=== PATIENT | female | born 1995 | race Two or more races ===

== ENCOUNTER 2020-06-18 17:43 | Emergency (ER) | payer OTHER ==
[~2020-06-18] VITALS: Ht 147.3 cm; Wt 51.3 kg
== END 2020-06-18 20:17 | disposition home or self-care (01) ==
LOC: ER 17:43
DX: R50.9 Fever, unspecified (principal); Z03.818 Encounter for observation for suspected exposure to other biological agents ruled out

== ENCOUNTER 2020-08-14 10:05 | Emergency (ER) | payer OTHER ==
[~2020-08-14] VITALS: Ht 147.3 cm; Wt 49.9 kg
== END 2020-08-14 18:06 | disposition home or self-care (01) ==
LOC: ER 10:05
DX: N92.5 Other specified irregular menstruation (principal); K62.5 Hemorrhage of anus and rectum

== ENCOUNTER 2020-10-24 11:30 | Emergency (ER) | payer OTHER ==
[~2020-10-24] VITALS: Ht 147.3 cm; Wt 49.9 kg
[2020-10-24] MEDS ORDERED: REMICADE IV (12:17)
[2020-10-24] MEDS ORDERED: PREDNISONE10 MG PO (20:42)
== END 2020-10-24 20:47 | disposition home or self-care (01) ==
LOC: ER 11:30
DX: R10.84 Generalized abdominal pain (principal); K50.90 Crohn's disease, unspecified, without complications; Z11.52 Encounter for screening for COVID-19

== ENCOUNTER → 2021-01-02 | Emergency (ER) | payer OTHER ==
[~2021-01-02] VITALS: Ht 147.3 cm; Wt 50.3 kg
[~2021-01-02] MED LIST: ANTICONCEPTIVO; DUI500 PO; PREDNISONE10 MG PO; REMICADE IV; STELARA45 MG/0.1
== END | disposition home or self-care (01) ==
LOC: ER 18:26
DX: J03.90 Acute tonsillitis, unspecified (principal); R51.9 Headache, unspecified; R53.81 Other malaise; Z03.818 Encounter for observation for suspected exposure to other biological agents ruled out

== ENCOUNTER 2021-03-26 08:25 | Emergency (ER) | payer OTHER ==
[~2021-03-26] VITALS: Ht 147.3 cm; Wt 53.5 kg
[2021-03-26] MEDS ORDERED: LOESTRIN FE 1-1 EACH PO (08:37)
== END 2021-03-26 17:22 | disposition home or self-care (01) ==
LOC: ER 08:25
DX: K29.00 Acute gastritis without bleeding (principal)

== ENCOUNTER 2021-04-14 01:34 | Emergency (ER) | payer OTHER ==
[~2021-04-14] VITALS: Ht 147.3 cm; Wt 52.6 kg
[~2021-04-14 01:34] MED LIST changes: +LOESTRIN FE 1-1 EACH PO
[2021-04-14] MEDS ORDERED: DICY20TA PO (06:52)
[2021-04-14] MEDS ORDERED: CIPRO500 MG PO (06:52)
[2021-04-14] MEDS ORDERED: PEPCID AC20 MG PO (06:52)
[2021-04-14] MEDS ORDERED: METRONIDAZOLE500 MG PO (06:52)
== END 2021-04-14 06:58 | disposition home or self-care (01) ==
LOC: ER 01:34
DX: K50.10 Crohn's disease of large intestine without complications (principal)

== ENCOUNTER 2021-04-20 22:22 | Emergency (ER) | payer OTHER ==
[~2021-04-20] VITALS: Ht 147.3 cm; Wt 52.6 kg
[~2021-04-20 22:22] MED LIST changes: +CIPRO500 MG PO; +DICY20TA PO; +METRONIDAZOLE500 MG PO; +PEPCID AC20 MG PO
[2021-04-21] MEDS ORDERED: ULTRAM50 MG PO (03:39)
== END 2021-04-21 04:39 | disposition home or self-care (01) ==
LOC: ER 22:22
DX: K50.90 Crohn's disease, unspecified, without complications (principal); R10.9 Unspecified abdominal pain

== ENCOUNTER 2021-04-22 18:20 | Inpatient (IN) | payer OTHER ==
[~2021-04-22] VITALS: Ht 177.8 cm
[~2021-04-22 18:20] MED LIST changes: +ULTRAM50 MG PO
--- NOTE | 2021-04-22 18:51 | NUR ---
PTE ALERTA,ESTABLE Y ORIENTADA.ESTA REFIERE QUE LLEVA VARIOS PARKS CON DOLOR DE ABDOMEN Y SANGRADO RECTAL.
--- NOTE | 2021-04-22 19:35 | NUR ---
MR. BROWN EDUCA A PTE SOBRE [place] MEDICO ESTA REFIERE ENTENDER SE JAMES MUESTRAS DE LABORATORIO UTILIZANDO MEDIDAS ASEPTICAS. SE COLOCA H/L EL CUAL SE ENCUENTRA PATENTE. SE COLOCAN MEDICAMENTO LOS CUALES TOLERA.
--- NOTE | 2021-04-22 23:48 | NUR ---
PACIENTE ALERTA Y ORIENTADA X3. RECIBIENDO 0.9% NSS DE 1,000ML BAJANDO A 125ML/HR. PENDIENTE CT ABDOMEN Y PELVICO CON CONTRASTE PO. PACIENTE CONSULTADA CON DR. WYATT GALICIA. PENDIENTE ENTREGA DE MUESTRA DE MONIE OCULTA. SE MANTIENE BAJO OBSERVACION POR CAMBIOS SIGNIFICATIVOS.
--- NOTE | 2021-04-23 07:19 | NUR ---
PACIENTE FEMENINA, ALERTA Y ORIENTADA. ACOSTADA EN NÉSTOR BARANDAS ELEVADAS POR SEGURIDAD. CANALIZADA EN BRAZO SUMIT, EL MISMO PATENTE AL MOMENTO. SE LE ORIENTA SOBRE CONTINUIDAD DE TRATAMIENTO, REFIERE ENTENDER. REFIERE TENER LEVE DOLOR ABDOMINAL, SHERRI LANGFORD MCKENZIE. SE MANTIENE BAJO OBSERVACION POR CAMBIOS. PENDIENTE CONSULTA CON DR. WYATT GALICIA.
--- NOTE | 2021-04-23 16:42 | NUR ---
SE ORIENTA A PACIENTE SOBRE PROCEDIMIENTO DE PICC LINE Y CONSENTIMIENTO. PACIENTE REFIERE TENER MIEDO A PROCEDIMIENTO. SE LE ORIENTA A PACIENTE QUE SE VA A MANTENER CONSENTIMIENTO SIN FIRMAR EN MARSHALL PAPELES DE RECORD EN HIRA DE QUE CAMBIE DE OPINION
--- NOTE | 2021-04-23 16:45 | NUR ---
SE ORIENTA A PACIENTE SOBRE CONSENTIMIENTO Y PROCEDIMIENTO DE PICC LINE LA CUAL INDICA TENER MIEDO Y REHUSAR. SE ORIENTA N[place]VAMENTE A PACIENTE Y SE LE NOTIFICA QUE DOCUMENTO DE CONSENTIMIENTO SIN FIRMAR SE MANTENDRA EN RECORD EN HIRA DE QUE CAMBIE DE OPINION
[2021-04-25] MEDS ORDERED: FAMOTIDINE20 MG (15:00)
[2021-04-25] MEDS ORDERED: LO LOESTRIN FE1 EACH (15:00)
[2021-04-25] MEDS ORDERED: PANTOPRAZOLE SO40 MG (15:01)
[2021-04-25] MEDS ORDERED: LORATADINE10 MG (15:01)
== END 2021-04-27 19:00 | disposition home or self-care (01) | DRG 386 ==
LOC: ER 18:20 → MEDJ 04-23 17:36
PROVIDERS: ADMIT Internal Medicine; ATTEND Internal Medicine
PROC: BW2110Z Computerized Tomography (CT Scan) of Abdomen and Pelvis using Low Osmolar Contrast, Unenhanced and Enhanced (ICD-10-PCS; principal; 2021-04-23)
PROC: BT4JZZZ Ultrasonography of Kidneys and Bladder (ICD-10-PCS; 2021-04-27)
DX: K50.00 Crohn's disease of small intestine without complications (principal); N17.8 Other acute kidney failure; K29.60 Other gastritis without bleeding; Z20.822 Contact with and (suspected) exposure to COVID-19

== ENCOUNTER 2022-02-11 13:44 | Emergency (ER) | payer OTHER ==
[~2022-02-11] VITALS: Ht 147.3 cm; Wt 49.4 kg
[~2022-02-11 13:44] MED LIST changes: +FAMOTIDINE20 MG; +LO LOESTRIN FE1 EACH; +LORATADINE10 MG; +PANTOPRAZOLE SO40 MG
== END 2022-02-11 20:08 | disposition home or self-care (01) ==
LOC: ER 13:44
DX: K52.9 Noninfective gastroenteritis and colitis, unspecified (principal); Z91.041 Radiographic dye allergy status

== ENCOUNTER 2022-05-16 16:10 | Emergency (ER) | payer OTHER ==
[~2022-05-16] VITALS: Ht 149.9 cm; Wt 52.2 kg
[2022-05-16] MEDS ORDERED: KETO10TA2 PO (21:12)
== END 2022-05-16 21:28 | disposition home or self-care (01) ==
LOC: ER 16:10
DX: N20.0 Calculus of kidney (principal); Z88.8 Allergy status to other drugs, medicaments and biological substances; Z20.822 Contact with and (suspected) exposure to COVID-19

== ENCOUNTER → 2023-01-04 | Emergency (ER) | payer OTHER ==
[~2023-01-04] VITALS: Ht 149.9 cm; Wt 51.7 kg
[~2023-01-04] MED LIST changes: +KETO10TA2 PO
== END | disposition left against medical advice (07) ==
LOC: ER 12:43
DX: Z53.21 Procedure and treatment not carried out due to patient leaving prior to being seen by health care provider (principal)

== ENCOUNTER 2023-01-07 11:09 | Emergency (ER) | payer OTHER ==
[~2023-01-07] VITALS: Ht 149.9 cm; Wt 51.7 kg
[2023-01-07] MEDS ORDERED: AMBIEN5 MG PO (11:18)
[2023-01-07] MEDS ORDERED: PROAIR RESPICL90 MCG IH (12:45)
[2023-01-07] MEDS ORDERED: TUSNEL LIQUID178 ML PO (12:45)
[2023-01-07] MEDS ORDERED: PAXLOVID 300-11 EACH PO (12:45)
== END 2023-01-07 13:04 | disposition home or self-care (01) ==
LOC: ER 11:09
DX: U07.1 COVID-19 (principal); R50.9 Fever, unspecified; Z91.041 Radiographic dye allergy status

== ENCOUNTER → 2023-04-22 | Emergency (ER) | payer OTHER ==
[~2023-04-22] VITALS: Ht 149.9 cm; Wt 50.3 kg
[~2023-04-22] MED LIST changes: +AMBIEN5 MG PO; +PAXLOVID 300-11 EACH PO; +PROAIR RESPICL90 MCG IH; +REMERON15 M1 PO; +TUSNEL LIQUID178 ML PO; +[UNRECOGNIZED DRUG - OTHER]
== END | disposition left against medical advice (07) ==
LOC: ER 21:40
DX: Z53.21 Procedure and treatment not carried out due to patient leaving prior to being seen by health care provider (principal)

== ENCOUNTER 2023-07-21 12:05 | Emergency (ER) | payer OTHER ==
[~2023-07-21] VITALS: Ht 147.3 cm; Wt 54.4 kg
[2023-07-21] MEDS ORDERED: 0.9 % SODIUM CHLORIDE 1,000 ML IV STA (13:09)
[2023-07-21] MEDS ORDERED: MEPERIDINE HCL/PF 25 MG/ML VIAL IM STA (13:10)
[2023-07-21] MEDS ORDERED: HYOSCYAMINE SULFATE 0.125 MG TAB.SUBL SL ONE (13:15)
[2023-07-21 13:35] LABS: HEMATOCRIT 34.4 % (36.0-45.00); HEMOGLOBIN 11.4 g/dL (12.0-15.00); MEAN CELL VOLUME 77.3 fL (80.00-100.00); MEAN CORPUSCULAR HEMOGLOBIN 25.6 pg (27.00-32.0); MEAN CORPUSCULAR HGB CONC 33.1 g/dl (32.0-36.0); PLATELET COUNT 393 K/uL (150-450); RED BLOOD COUNT 4.45 M/uL (4.00-6.00); RED CELL DISTRIBUTION WIDTH 15.7 % (11.5-14.5)
[2023-07-21 14:10] LABS: ALBUMIN 3.7 gm/dL (3.4-5.0); BILIRUBIN TOTAL 0.64 mg/dL (0.3-1.2); BILIRUBIN,CONJUGATED 0.15 mg/dL (0.0-0.2); BILIRUBIN,UNCONJUGATED 0.49 mg/dL (0.0-0.6); CALCIUM 9.3 mg/dL (8.5-10.1); CREATININE SERUM 0.73 mg/dL (0.55-1.02); GFR 95.63; POTASSIUM 4.64 mEq/L (3.5-5.1); TOTAL PROTEIN 8.1 gm/dL (6.4-8.2)
[2023-07-21 14:45] LABS: PH,URINE 6.5 (5.0-8.0); URINE APPEARANCE Clear; URINE BILIRRUBIN Negative (NEGATIVE); URINE BLOOD Negative; URINE COLOR Yellow; URINE GLUCOSE Negative (NEGATIVE); URINE LEUKOCYTE Small; URINE NITRATE Negative; URINE PROTEIN Negative (NEGATIVE); URINE UROBILINOGEN 0.2 E.U./dl
[2023-07-21 14:49] LABS: URINE BACTERIA 740.8 uL (0.0-1933); URINE EPITHELIAL CELLS 22.4 uL (0.0-38.8); URINE RBC 3.8 uL (0.0-20.8); URINE WBC 20.7 uL (0.0-23.2)
== END 2023-07-21 17:31 | disposition home or self-care (01) ==
LOC: ER 12:05
PROVIDERS: General Practice
DX: K50.90 Crohn's disease, unspecified, without complications (principal); Z91.041 Radiographic dye allergy status

== ENCOUNTER → 2023-07-31 | Emergency (ER) | payer OTHER ==
[~2023-07-31] VITALS: Ht 147.3 cm; Wt 53.5 kg
[~2023-07-31] MED LIST changes: +FLAGYL375 MG
== END | disposition left against medical advice (07) ==
LOC: ER 21:03
DX: Z53.21 Procedure and treatment not carried out due to patient leaving prior to being seen by health care provider (principal)

== ENCOUNTER 2023-08-01 02:26 | Emergency (ER) | payer OTHER ==
[~2023-08-01] VITALS: Ht 147.3 cm; Wt 54.0 kg
[2023-08-01] MEDS ORDERED: METOCLOPRAMIDE HCL 5 MG/ML VIAL IM STA (04:58)
[2023-08-01] MEDS ORDERED: ONDANSETRON HCL 2 MG/ML VIAL IV STA (04:59)
[2023-08-01] MEDS ORDERED: RINGERS SOLUTION,LACTATED 1,000 ML IV STA (04:59)
[2023-08-01] MEDS ORDERED: BISMUTH SUBSALICYLATE 524 MG/30 ML BLIST.PACK PO STA (05:00)
[2023-08-01] MEDS ORDERED: FAMOtidine 10 MG/ML (4ML VIAL) IV PUSH STA (05:00)
[2023-08-01] MEDS ORDERED: HYOSCYAMINE SULFATE 0.125 MG TAB.SUBL SL STA (05:00)
[2023-08-01] MEDS ORDERED: LOPERAMIDE HCL 2 MG CAPSULE PO STA (05:01)
[2023-08-01 05:22] LABS: HEMATOCRIT 37.9 % (36.0-45.00); HEMOGLOBIN 12.6 g/dL (12.0-15.00); MEAN CELL VOLUME 78.6 fL (80.00-100.00); MEAN CORPUSCULAR HEMOGLOBIN 26.2 pg (27.00-32.0); MEAN CORPUSCULAR HGB CONC 33.3 g/dl (32.0-36.0); PLATELET COUNT 420 K/uL (150-450); RED BLOOD COUNT 4.82 M/uL (4.00-6.00); RED CELL DISTRIBUTION WIDTH 15.9 % (11.5-14.5)
[2023-08-01 05:51] LABS: BILIRUBIN TOTAL 0.37 mg/dL (0.3-1.2); CALCIUM 9.7 mg/dL (8.5-10.1); CREATININE SERUM 0.78 mg/dL (0.55-1.02); GFR 88.59; GLOBULINA 4.7 G/DL (2.4-3.5); POTASSIUM 3.93 mEq/L (3.5-5.1); TOTAL PROTEIN 8.7 gm/dL (6.4-8.2)
== END 2023-08-01 07:28 | disposition home or self-care (01) ==
LOC: ER 02:26
DX: K52.89 Other specified noninfective gastroenteritis and colitis (principal); Z91.040 Latex allergy status; Z20.822 Contact with and (suspected) exposure to COVID-19

== ENCOUNTER 2023-08-03 14:40 | Outpatient (CLI) | payer OTHER | END 2023-08-03 14:45 | disposition home or self-care (01) | LOC: MRI 14:40 | PROVIDERS: ATTEND Internal Medicine Gastroenterology | DX: K58.0 Irritable bowel syndrome with diarrhea (principal); F41.1 Generalized anxiety disorder | CPT/HCPCS: 72195 ==

== ENCOUNTER 2024-05-15 13:20 | Emergency (ER) | payer OTHER ==
[~2024-05-15] VITALS: Ht 147.3 cm; Wt 59.4 kg
[2024-05-15 16:12] LABS: HEMATOCRIT 36.9 % (36.0-45.00); HEMOGLOBIN 12.4 g/dL (12.0-15.00); MEAN CELL VOLUME 88.5 fL (80.00-100.00); MEAN CORPUSCULAR HEMOGLOBIN 29.6 pg (27.00-32.0); MEAN CORPUSCULAR HGB CONC 33.4 g/dl (32.0-36.0); PLATELET COUNT 383 K/uL (150-450); RED BLOOD COUNT 4.17 M/uL (4.00-6.00); RED CELL DISTRIBUTION WIDTH 14.2 % (11.5-14.5)
[2024-05-15 16:42] LABS: ALBUMIN 4.5 gm/dL (3.4-5.0); ALKALINE PHOSPHATASE 52 U/L (50-136); ALT/SGPT 14 U/L (12-78); ANION GAP 10 (10.0-20.0); AST/SGOT 15 U/L (15-37); BILIRUBIN TOTAL 0.72 mg/dL (0.3-1.2); BLOOD UREA NITROGEN 8 mg/dL (7-18); BUN CREA RATIO 10 (7.0-25.0); CALCIUM 9.7 mg/dL (8.5-10.1); CARBON DIOXIDE 28 mEq/L (21-32); CHLORIDE 108 mmol/L (98-107); GFR 85.41; GLOBULINA 3.7 G/DL (2.4-3.5); GLUCOSE FASTING 102 mg/dL (65-100); HCG QUANTITATIVE < 1 mUI/mL (1-3); OSMOLALITY SERUM 282 MOSM/KG (275-295); POTASSIUM 4.14 mEq/L (3.5-5.1); SODIUM 142 mmol/L (136-145); TOTAL PROTEIN 8.2 gm/dL (6.4-8.2)
== END 2024-05-15 18:32 | disposition home or self-care (01) ==
LOC: ER 13:22
PROVIDERS: General Practice
DX: R53.81 Other malaise (principal); R20.0 Anesthesia of skin; Z20.822 Contact with and (suspected) exposure to COVID-19; Z91.041 Radiographic dye allergy status

== ENCOUNTER 2024-06-18 10:17 | Emergency (ER) | payer OTHER ==
[~2024-06-18] VITALS: Ht 147.3 cm; Wt 59.0 kg
[2024-06-18] MEDS ORDERED: RINVOQ ER15 MG PO (10:32)
[2024-06-18] MEDS ORDERED: 0.9 % SODIUM CHLORIDE 1,000 ML IV ONE (11:30)
[2024-06-18] MEDS ORDERED: FAMOTIDINE/PF 20 MG/2 ML VIAL IV PUSH ONE (11:30)
[2024-06-18] MEDS ORDERED: ONDANSETRON 4 MG TAB.RAPDIS PO ONE (11:30)
[2024-06-18] MEDS ORDERED: ONDANSETRON HCL 2 MG/ML VIAL ONE (11:39)
[2024-06-18] MEDS ORDERED: FAMOTIDINE/PF 20 MG/2 ML VIAL ONE (11:39)
[2024-06-18 12:13] LABS: HEMATOCRIT 35.1 % (36.0-45.00); HEMOGLOBIN 11.6 g/dL (12.0-15.00); MEAN CELL VOLUME 88.4 fL (80.00-100.00); MEAN CORPUSCULAR HEMOGLOBIN 29.2 pg (27.00-32.0); PLATELET COUNT 411 K/uL (150-450); RED BLOOD COUNT 3.97 M/uL (4.00-6.00); RED CELL DISTRIBUTION WIDTH 14.1 % (11.5-14.5)
[2024-06-18 13:05] LABS: ALBUMIN 3.9 gm/dL (3.4-5.0); ALKALINE PHOSPHATASE 62 U/L (50-136); ALT/SGPT 12 U/L (12-78); AMYLASE 81 U/L (25-115); ANION GAP 7 (10.0-20.0); AST/SGOT 15 U/L (15-37); BILIRUBIN TOTAL 0.66 mg/dL (0.3-1.2); BLOOD UREA NITROGEN 10 mg/dL (7-18); BUN CREA RATIO 13 (7.0-25.0); CALCIUM 9.7 mg/dL (8.5-10.1); CARBON DIOXIDE 31 mEq/L (21-32); CHLORIDE 107 mmol/L (98-107); CREATININE SERUM 0.75 mg/dL (0.55-1.02); GFR 92.01; GLOBULINA 3.6 G/DL (2.4-3.5); GLUCOSE FASTING 91 mg/dL (65-100); LIPASE 43 U/L (13-75); OSMOLALITY SERUM 280 MOSM/KG (275-295); POTASSIUM 4.32 mEq/L (3.5-5.1); SODIUM 141 mmol/L (136-145); TOTAL PROTEIN 7.5 gm/dL (6.4-8.2)
[2024-06-18 13:17] LABS: HCG QUANTITATIVE < 1 mUI/mL (1-3)
== END 2024-06-18 15:00 | disposition home or self-care (01) ==
LOC: ER 10:20
PROVIDERS: General Practice
DX: K52.9 Noninfective gastroenteritis and colitis, unspecified (principal); R10.9 Unspecified abdominal pain; Z20.822 Contact with and (suspected) exposure to COVID-19; Z91.041 Radiographic dye allergy status

== ENCOUNTER 2024-10-02 22:10 | Emergency (ER) | payer OTHER ==
[~2024-10-02] VITALS: Ht 147.3 cm; Wt 58.5 kg
[~2024-10-02 22:10] MED LIST changes: +RINVOQ ER15 MG PO
[2024-10-03] MEDS ORDERED: KETOROLAC TROMETHAMINE 60 MG VIAL IM STA (01:39)
[2024-10-03] MEDS ORDERED: CEFTRIAXONE SODIUM 1,000 MG VIAL IM STA (01:40)
[2024-10-03] MEDS ORDERED: KETOROLAC TROMETHAMINE 60 MG VIAL IM ONE (01:45)
[2024-10-03] MEDS ORDERED: CEFTRIAXONE SODIUM 1,000 MG VIAL ONE (01:46)
[2024-10-03 02:29] LABS: PH,URINE 5.5 (5.0-8.0); URINE APPEARANCE Clear; URINE BILIRRUBIN Negative (NEGATIVE); URINE BLOOD Negative; URINE COLOR Yellow; URINE GLUCOSE Negative (NEGATIVE); URINE KETONE Negative (NEGATIVE); URINE LEUKOCYTE Negative; URINE NITRATE Negative; URINE PROTEIN Negative (NEGATIVE); URINE UROBILINOGEN 0.2 E.U./dl
[2024-10-03 02:31] LABS: BASO % 1.1 % (0.1-1.2); EOS # 0.86 (0.04-0.54); EOS % 9.1 % (0.7-7.0); HEMATOCRIT 34.4 % (34.1-44.9); HEMOGLOBIN 11.4 g/dL (11.2-15.7); LYMPH # 2.17 (1.18-3.74); LYMPH % 22.9 % (19.3-53.1); MONO # 0.87 (0.24-0.82); MONO % 9.2 % (4.7-12.5); NEUT # 5.44 (1.56-6.13); NEUT % 57.4 % (34.0-71.1); PLATELET COUNT 466 K/uL (163-369); RED BLOOD COUNT 4.23 M/uL (3.93-5.22); RED CELL DISTRIBUTION WIDTH 12.4 % (11.6-14.4)
[2024-10-03 02:32] LABS: URINE BACTERIA 152.9 uL (0.0-1933); URINE EPITHELIAL CELLS 7.4 uL (0.0-38.8); URINE RBC 4.1 uL (0.0-20.8); URINE WBC 3.9 uL (0.0-23.2)
[2024-10-03] MEDS ORDERED: CEPHALEXIN500 MG PO (04:20)
[2024-10-03] MEDS ORDERED: MELOXICAM15 MG PO (04:20)
== END 2024-10-03 04:28 ==
LOC: ER 22:10
PROVIDERS: General Practice
DX: L02.91 Cutaneous abscess, unspecified (principal); R53.81 Other malaise; Z88.8 Allergy status to other drugs, medicaments and biological substances; Z91.041 Radiographic dye allergy status

== ENCOUNTER 2024-11-08 22:16 | Emergency (ER) | payer OTHER ==
[~2024-11-08] VITALS: Ht 165.1 cm; Wt 57.6 kg
[~2024-11-08 22:16] MED LIST changes: +CEPHALEXIN500 MG PO; +MELOXICAM15 MG PO
[2024-11-08 23:21] VITALS: BP 105/70; O2SAT 19
[2024-11-09] MEDS ORDERED: 0.9 % SODIUM CHLORIDE 1,000 ML IV STA (00:08)
[2024-11-09] MEDS ORDERED: FAMOtidine 10 MG/ML (4ML VIAL) IV PUSH STA (00:09)
[2024-11-09] MEDS ORDERED: PROMETHAZINE HCL 50 MG/ML AMPUL IM STA (00:09)
[2024-11-09] MEDS ORDERED: HYOSCYAMINE SULFATE 0.125 MG TAB.SUBL SL ONE (00:15)
[2024-11-09] MEDS ORDERED: HYOSCYAMINE SULFATE 0.125 MG TAB.SUBL ONE (00:55)
[2024-11-09] MEDS ORDERED: PROMETHAZINE HCL 50 MG/ML AMPUL IM ONE (00:55)
[2024-11-09] MEDS ORDERED: FAMOTIDINE/PF 20 MG/2 ML VIAL ONE (00:55)
[2024-11-09 02:11] LABS: EOS # 0.76 (0.04-0.54); EOS % 7.2 % (0.7-7.0); HEMATOCRIT 30.2 % (34.1-44.9); HEMOGLOBIN 9.3 g/dL (11.2-15.7); LYMPH # 2.34 (1.18-3.74); LYMPH % 22.1 % (19.3-53.1); MEAN CORPUSCULAR HEMOGLOBIN 24.5 pg (25.6-32.2); MONO # 0.98 (0.24-0.82); MONO % 9.3 % (4.7-12.5); NEUT # 6.37 (1.56-6.13); NEUT % 60.1 % (34.0-71.1); PLATELET COUNT 434 K/uL (163-369); RED CELL DISTRIBUTION WIDTH 13.3 % (11.6-14.4)
[2024-11-09 02:27] LABS: COVID-19 AG NEGATIVE (NEGATIVE)
[2024-11-09 02:28] LABS: CALCIUM 8.8 mg/dL (8.5-10.1); CREATININE SERUM 0.64 mg/dL (0.55-1.02); GFR 110.49; POTASSIUM 3.91 mEq/L (3.5-5.1)
[2024-11-09 02:37] LABS: INFLUENZA A AG NEGATIVE (NEGATIVE)
[2024-11-09 02:39] LABS: INFLUENZA B AG NEGATIVE (NEGATIVE)
== END 2024-11-09 04:21 | disposition home or self-care (01) ==
LOC: ER 22:29
DX: K52.89 Other specified noninfective gastroenteritis and colitis (principal); Z91.041 Radiographic dye allergy status; Z20.822 Contact with and (suspected) exposure to COVID-19

== ENCOUNTER 2024-12-05 17:30 | Emergency (ER) | payer OTHER ==
[~2024-12-05] VITALS: Ht 147.3 cm; Wt 56.7 kg
[2024-12-05] MEDS ORDERED: PREDNISONE20 MG PO (17:38)
[2024-12-05] MEDS ORDERED: DEXAMETHASONE SODIUM PHOSP/PF 10 MG/ML VIAL IV ONE (18:00)
[2024-12-05] MEDS ORDERED: FAMOtidine 10 MG/ML (4ML VIAL) IV ONE (18:00)
[2024-12-05] MEDS ORDERED: METHYLPREDNISOLONE SOD SUCC 125 MG VIAL IV ONE (18:15)
[2024-12-05] MEDS ORDERED: ONDANSETRON HCL 2 MG/ML VIAL IV ONE (18:15)
[2024-12-05] MEDS ORDERED: 0.9 % SODIUM CHLORIDE 1,000 ML IV ONE (18:15)
[2024-12-05 18:58] LABS: BASO % 0.3 % (0.1-1.2); EOS # 0.00 (0.04-0.54); EOS % 0.0 % (0.7-7.0); LYMPH # 0.89 (1.18-3.74); LYMPH % 13.7 % (19.3-53.1); MEAN PLATELET VOLUME 8.60 fl (9.4-12.4); MONO # 0.68 (0.24-0.82); MONO % 10.5 % (4.7-12.5); NEUT # 4.77 (1.56-6.13); NEUT % 73.5 % (34.0-71.1); RED CELL DISTRIBUTION WIDTH 13.8 % (11.6-14.4)
[2024-12-05 19:22] LABS: INR 1.1
[2024-12-05 19:30] LABS: ALT/SGPT 15 U/L (12-78); AST/SGOT 9 U/L (15-37); BILIRUBIN TOTAL 0.44 mg/dL (0.3-1.2); BUN CREA RATIO 14 (7.0-25.0); CREATININE SERUM 0.81 mg/dL (0.55-1.02); GFR 84.19; GLOBULINA 4.4 G/DL (2.4-3.5); GLUCOSE FASTING 115 mg/dL (65-100); OSMOLALITY SERUM 283 MOSM/KG (275-295)
[2024-12-05 19:31] LABS: HCG QUANTITATIVE < 1 mUI/mL (1-3)
[2024-12-05 20:32] LABS: URINE APPEARANCE Clear; URINE BILIRRUBIN Negative (NEGATIVE); URINE BLOOD Negative; URINE COLOR Yellow; URINE GLUCOSE Negative (NEGATIVE); URINE KETONE Trace (NEGATIVE); URINE LEUKOCYTE Negative; URINE NITRATE Negative; URINE PROTEIN 30 (NEGATIVE); URINE UROBILINOGEN 1.0 E.U./dl
[2024-12-05 20:36] LABS: URINE BACTERIA 513.5 uL (0.0-1933); URINE CAST 0.43 uL (0.0-1.40); URINE EPITHELIAL CELLS 19.6 uL (0.0-38.8); URINE RBC 22.4 uL (0.0-20.8); URINE WBC 16.7 uL (0.0-23.2)
[2024-12-05] MEDS ORDERED: LEVSIN/SL0.125 MG SL (21:02)
[2024-12-05] MEDS ORDERED: PROTONIX40 MG PO (21:02)
[2024-12-05] MEDS ORDERED: BACTRIM DS TAB1 EACH PO (21:02)
[2024-12-05] MEDS ORDERED: ZOFRAN8 MG PO (21:02)
[2024-12-05] MEDS ORDERED: PYRIDIUM DS200 MG PO (21:02)
== END 2024-12-05 21:48 | disposition home or self-care (01) ==
LOC: ER 17:30
PROVIDERS: General Practice
DX: K50.90 Crohn's disease, unspecified, without complications (principal); R10.9 Unspecified abdominal pain; Z91.041 Radiographic dye allergy status

== ENCOUNTER 2024-12-09 14:43 | Inpatient (IN) | payer OTHER ==
[~2024-12-09] VITALS: Ht 147.3 cm; Wt 56.2 kg
[~2024-12-09 14:43] MED LIST changes: +BACTRIM DS TAB1 EACH PO; +LEVSIN/SL0.125 MG SL; +PREDNISONE20 MG PO; +PROTONIX40 MG PO; +PYRIDIUM DS200 MG PO; +ZOFRAN8 MG PO
[2024-12-09] MEDS ORDERED: PANTOPRAZOLE SODIUM 40 MG in 0.9 % SODIUM CHLORIDE 8 ML IV PUSH STA (17:11)
[2024-12-09] MEDS ORDERED: ONDANSETRON HCL 2 MG/ML VIAL IV ONE (17:15)
[2024-12-09] MEDS ORDERED: CIPROFLOXACIN IN 5 % DEXTROSE 400 MG/200 ML PIGGYBAG IV ONE ×2 (17:15→17:20)
[2024-12-09] MEDS ORDERED: METRONIDAZOLE/SODIUM CHLORIDE 500 MG/100 ML PIGGYBACK IV ONE ×2 (17:15→17:20)
[2024-12-09] MEDS ORDERED: 0.9 % SODIUM CHLORIDE 1,000 ML IV SCH ×2 (17:15→18:30)
[2024-12-09] MEDS ORDERED: ONDANSETRON HCL 2 MG/ML VIAL ONE (17:20)
[2024-12-09] MEDS ORDERED: MORPHINE SULFATE 2 MG/ML CARTRIDGE IV ONE (17:45)
[2024-12-09 18:00] LABS: BASO % 0.4 % (0.1-1.2); EOS # 0.14 (0.04-0.54); EOS % 1.2 % (0.7-7.0); LYMPH # 2.11 (1.18-3.74); LYMPH % 17.4 % (19.3-53.1); MEAN PLATELET VOLUME 8.40 fl (9.4-12.4); MONO # 1.37 (0.24-0.82); MONO % 11.3 % (4.7-12.5); NEUT # 8.31 (1.56-6.13); NEUT % 68.3 % (34.0-71.1); RED CELL DISTRIBUTION WIDTH 14.2 % (11.6-14.4)
[2024-12-09 18:17] LABS: INR 1.15
[2024-12-09 18:21] LABS: ALT/SGPT 77.0 U/L (12-78); AST/SGOT 88.0 U/L (15-37); BILIRUBIN TOTAL 0.65 mg/dL (0.3-1.2); BUN CREA RATIO 11.0 (7.0-25.0); CREATININE SERUM 1.02 mg/dL (0.55-1.02); GFR 64.53; GLOBULINA 4.7 G/DL (2.4-3.5); GLUCOSE FASTING 82.0 mg/dL (65-100); OSMOLALITY SERUM 267.0 MOSM/KG (275-295)
[2024-12-09] MEDS ORDERED: CIPROFLOXACIN IN 5 % DEXTROSE 200 ML IV SCH (18:35)
[2024-12-09] MEDS ORDERED: METHYLPREDNISOLONE SOD SUCC 125 MG VIAL IV SCH (18:36)
[2024-12-09 18:41] LABS: URINE APPEARANCE Cloudy; URINE BILIRRUBIN Negative (NEGATIVE); URINE BLOOD Moderate; URINE COLOR Yellow; URINE GLUCOSE Negative (NEGATIVE); URINE KETONE 15 (NEGATIVE); URINE LEUKOCYTE Large; URINE NITRATE Negative; URINE UROBILINOGEN 1.0 E.U./dl
[2024-12-09 18:45] LABS: URINE BACTERIA 4874.3 uL (0.0-1933); URINE EPITHELIAL CELLS 56.1 uL (0.0-38.8); URINE RBC 77.2 uL (0.0-20.8); URINE WBC 1264.3 uL (0.0-23.2)
[2024-12-09] MEDS ORDERED: ACETAMINOPHEN 500 MG GEL..CAP PO PRN (18:45)
[2024-12-09] MEDS ORDERED: ONDANSETRON HCL 4 MG in 0.9 % SODIUM CHLORIDE 50 ML IV PRN (18:45)
[2024-12-09 19:07] LABS: URINE CAST 0.58 uL (0.0-1.40); URINE PROTEIN 100 (NEGATIVE)
[2024-12-09] MEDS ORDERED: METHYLPREDNISOLONE SOD SUCC 125 MG VIAL ONE (19:53)
[2024-12-10 07:28] VITALS: BP 96/51; O2SAT 98
[2024-12-10] MEDS ORDERED: CIPROFLOXACIN IN 5 % DEXTROSE 400 MG/200 ML PIGGYBAG IV ONE ×2 (08:10→17:14)
[2024-12-10] MEDS ORDERED: METHYLPREDNISOLONE SOD SUCC 125 MG VIAL ONE (08:10)
[2024-12-10] MEDS ORDERED: METRONIDAZOLE/SODIUM CHLORIDE 500 MG/100 ML PIGGYBACK IV ONE ×2 (08:10→17:16)
[2024-12-10] MEDS ORDERED: PANTOPRAZOLE SODIUM 40 MG/VIAL VIAL IV SCH (09:00)
[2024-12-10] MEDS ORDERED: ACYCLOVIR SODIUM 500 MG VIAL IV STA (14:06)
[2024-12-10] MEDS ORDERED: BENZOCAINE/MENTHOL 90 ML BOTTLE TOP SCH (17:00)
[2024-12-10] MEDS ORDERED: ACYCLOVIR SODIUM 7MG/ML REDILUIDO IV SCH (17:00)
[2024-12-10] MEDS ORDERED: CLOTRIMAZOLE/BETAMETHASONE DIP 15 GM TUBE TOP SCH (21:00)
[2024-12-10] MEDS ORDERED: MORPHINE SULFATE 2 MG/ML CARTRIDGE IV PRN (22:45)
[2024-12-11 02:27] VITALS: BP 75/42; O2SAT 95
[2024-12-11 04:04] VITALS: BP 90/50
[2024-12-11 08:36] VITALS: BP 71/44; O2SAT 97
[2024-12-11] MEDS ORDERED: ENOXAPARIN SODIUM 40 MG/0.4 ML SYRINGE SUBCUTANEO SCH (09:00)
[2024-12-11] MEDS ORDERED: OxyCODONE HCL 5 MG TABLET (ROXICODONE) PO PRN (14:00)
[2024-12-11 14:52] VITALS: BP 97/60
[2024-12-11 16:51] VITALS: BP 87/54
[2024-12-11] MEDS ORDERED: PHENAZOPYRIDINE HCL 100 MG TABLET PO SCH (17:00)
[2024-12-12 02:30] VITALS: BP 89/56; O2SAT 95
[2024-12-12 06:29] LABS: BASO % 0.4 % (0.1-1.2); EOS # 0.01 (0.04-0.54); EOS % 0.1 % (0.7-7.0); LYMPH # 2.79 (1.18-3.74); LYMPH % 34.1 % (19.3-53.1); MEAN PLATELET VOLUME 9.00 fl (9.4-12.4); MONO # 1.00 (0.24-0.82); NEUT # 4.28 (1.56-6.13); NEUT % 52.2 % (34.0-71.1); RED CELL DISTRIBUTION WIDTH 14.4 % (11.6-14.4)
[2024-12-12 06:31] LABS: MONO % 12.2 % (4.7-12.5)
[2024-12-12 07:05] LABS: BUN CREA RATIO 10.0 (7.0-25.0); CREATININE SERUM 0.7 mg/dL (0.55-1.02); GFR 99.64; GLUCOSE FASTING 110.0 mg/dL (65-100); OSMOLALITY SERUM 278.0 MOSM/KG (275-295)
[2024-12-12 08:22] VITALS: BP 90/58; O2SAT 97
[2024-12-12 12:29] LABS: BASO % 0.3 % (0.1-1.2); EOS # 0.00 (0.04-0.54); EOS % 0.0 % (0.7-7.0); LYMPH # 1.89 (1.18-3.74); LYMPH % 27.0 % (19.3-53.1); MEAN PLATELET VOLUME 9.00 fl (9.4-12.4); MONO # 0.41 (0.24-0.82); MONO % 5.9 % (4.7-12.5); NEUT # 4.57 (1.56-6.13); NEUT % 65.4 % (34.0-71.1); RED CELL DISTRIBUTION WIDTH 14.2 % (11.6-14.4)
[2024-12-12 17:09] VITALS: BP 109/59
[2024-12-12 17:17] LABS: URINE APPEARANCE Clear; URINE BILIRRUBIN Negative (NEGATIVE); URINE BLOOD Negative; URINE COLOR Dark Yellow; URINE GLUCOSE Negative (NEGATIVE); URINE KETONE Negative (NEGATIVE); URINE LEUKOCYTE Small; URINE NITRATE Positive; URINE PROTEIN Negative (NEGATIVE); URINE UROBILINOGEN 1.0 E.U./dl
[2024-12-12 17:21] LABS: URINE BACTERIA 131.9 uL (0.0-1933); URINE EPITHELIAL CELLS 11.3 uL (0.0-38.8); URINE RBC 5.7 uL (0.0-20.8); URINE WBC 95.5 uL (0.0-23.2)
[2024-12-12 18:01] LABS: URINE CAST 0.00 uL (0.0-1.40)
[2024-12-13 02:57] VITALS: BP 85/51; O2SAT 97
[2024-12-13 09:51] VITALS: BP 104/62; O2SAT 100
[2024-12-13 17:25] VITALS: BP 93/52
[2024-12-14 02:36] VITALS: BP 95/60; O2SAT 98
[2024-12-14 08:47] VITALS: BP 90/50
[2024-12-14] MEDS ORDERED: PANTOPRAZOLE SODIUM 40 MG TABLET.DR PO SCH (09:00)
[2024-12-14] MEDS ORDERED: CEFTRIAXONE SODIUM 2,000 MG VIAL IV STA (11:06)
[2024-12-14 16:46] VITALS: BP 109/61
[2024-12-14 21:12] LABS: chla t Negative (Negative); neiss Negative (Negative)
[2024-12-15 01:38] VITALS: BP 90/60; O2SAT 98
[2024-12-15] MEDS ORDERED: CEFTRIAXONE SODIUM 2,000 MG VIAL IV SCH (09:00)
[2024-12-15 09:01] VITALS: BP 105/70; O2SAT 97
== END 2024-12-15 09:30 | disposition home or self-care (01) | DRG 392 ==
LOC: ER 14:43 → MEDI 20:14 → MEDJ 20:14 → SEC-K 20:14 → MEDI 12-10 17:31
PROVIDERS: General Practice; Student in an Organized Health Care Education/Training Program; ADMIT Internal Medicine; ATTEND Internal Medicine
PROC: BW21ZZZ Computerized Tomography (CT Scan) of Abdomen and Pelvis (ICD-10-PCS; principal; 2024-12-09)
DX: K52.89 Other specified noninfective gastroenteritis and colitis (principal); R65.10 Systemic inflammatory response syndrome (SIRS) of non-infectious origin without acute organ dysfunction; N39.0 Urinary tract infection, site not specified; K50.00 Crohn's disease of small intestine without complications; D64.9 Anemia, unspecified